=== PATIENT | female | born 1955 | race Caucasian/White ===

== ENCOUNTER → 2020-05-04 | Outpatient (CLI) | payer MEDICARE ==
[2020-05-04 09:03] VITALS: BP 134/83; PULSE 89; RESP 16; TEMP 98.3
--- NOTE | 2020-05-04 20:53 | P.PAINCN ---
History of Present Illness - Reason for Consult Consult date: 05/04/20 - History of Present Illness This is an initial consultation visit for this 65 years old female with a chronic history of neck pain and low back pain, she was treated previously , [facility], and she had been diagnosed with cervical degenerative disc disease cervical facet arthropathy and also she had lumbar degenerative disc disease and lumbar spondylosis with lumbar facet arthropathy, patient had the RFA of the medial branch lumbar area done at the [facility], and the last procedure was done in September 2019 and she had good pain relief, currently her main problem is low back pain, with radiation to the buttock area bilaterally, she denies any motor or sensory deficit she denies any fever or night sweats and there is no change in the bowel movement or urination Past Medical History Past Medical History: Hyperlipidemia, Hypertension, Osteoarthritis (OA), Thyroid Disorder Additional Past Medical History / Comment(s): 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", hx of raynaud's, states possible connective tissue disorder, osteopenia, chronic back pain History of Any Multi-Drug Resistant Organisms: None Reported Past Surgical History: Cholecystectomy Additional Past Surgical History / Comment(s): epidurals for pain, ablations for pain Past Anesthesia/Blood Transfusion Reactions: No Reported Reaction Past Psychological History: No Psychological Hx Reported Smoking Status: Former smoker Past Alcohol Use History: None Reported Past Drug Use History: None Reported Medications and Allergies Home Medications Medication Instructions Recorded Confirmed Type Aspirin [Adult Low Dose Aspirin EC] 81 mg PO DAILY 05/02/20 05/02/20 History Atorvastatin [Lipitor] 20 mg PO DAILY 05/02/20 05/02/20 History Calcium 600-Vitamin D3 1 tab PO BID 05/02/20 History Cranberry 1 tab PO DAILY 05/02/20 History Furosemide [Lasix] 40 mg PO DAILY 05/02/20 05/02/20 History L.acidoph,Paracasei, B.lactis 1 each PO DAILY 05/02/20 05/02/20 History [Probiotic] Levothyroxine Sodium [Synthroid] 50 mcg PO DAILY 05/02/20 05/02/20 History Nitroglycerin Sl Tabs [Nitrostat] 0.4 mg SUBLINGUAL Q5M PRN 05/02/20 05/02/20 History Potassium Chloride 10 meq PO DAILY 05/02/20 05/02/20 History Vitamin B Complex 1 each PO DAILY 05/02/20 05/02/20 History Vitamin D3 10,000 units PO DAILY 05/02/20 History amLODIPine [Norvasc] 5 mg PO QAM 05/02/20 05/02/20 History Allergies Allergy/AdvReac Type Severity Reaction Status Date / Time diltiazem [From Cardizem] Allergy Rash/Hives Verified 05/02/20 15:05 Iodinated Contrast Media Allergy Itching Verified 05/02/20 15:05 levofloxacin [From Levaquin] Allergy Unknown Verified 05/02/20 15:05 meloxicam [From Mobic] Allergy Swelling Verified 05/02/20 15:05 pregabalin [From Lyrica] Allergy Swelling Verified 05/02/20 15:05 sulfamethoxazole Allergy Rash/Hives Verified 05/02/20 15:05 [From Bactrim] trimethoprim [From Bactrim] Allergy Rash/Hives Verified 05/02/20 15:05 cefazolin [From Ancef] AdvReac "made me Verified 05/02/20 15:02 lightheaded" ciprofloxacin [From Cipro] AdvReac "chest Verified 05/02/20 15:03 pain" Physical Exam Vitals: Vital Signs Temp Pulse Resp BP Pulse Ox 05/04/20 08:54 98.3 F 89 16 134/83 96 Physical Examinations : -Constitutiona : Cooperative , not in acute distress . -HEENT : nech : supple , no Lymphadenopathy , normal thyroid size . : eyes : no ptosis , no icterus, no photophobia . - neurologic : Cranial nerve II to XII intact , no focal neurological deffecit . -psychatric : alert , oriented X 3 , appropriate affect , intact judgment and insight . -Lymphatic : no Lymphadenopathy . - musculoskeltal : Cervical Spine motor stregnth in the deltoid and biceps, normal right side , normal Left side motor stregnth biceps and the wrist extensors normal right side ,normal left side . motor stregnth in the triceps muscle . normal Right side , normal Left side deep tendon reflexes normal at the biceps , normal at Brachioradialis , normal at triceps. cervical facet loading test: Positive Bilaterally Spurling test= positive Right , positive left. Neck distraction test= positive Right , positive left. Og sign= positive right, positive left . Limited neck movement Lumber spine moter stegnth lower extremities ,thigh and legs 5/5 Right side , 5/5 Left side deep tendon reflexes : normal Knee Jerk , normal ankle Jerk lumber facet Loading Test =positive Right , posiutive Left Range of motion of the lumbar spine Flexion 30 degrees, extension 10 degrees strait leg raising test = positive at 30 degree Fabere test= positive Right , and positive LT . Sever tenderness over the Sacroiliac joint on the Right , and Left sides Gaenslen test= positive right ,and positive left . Seated flexion test= positive right ,and positive Left . Results Comments: MRI of the cervical spine C3 4 C4 5 C5 6 C6 7 cervical degenerative disc disease and cervical spondylosis with cervical facet arthropathy. MRI of the lumbar spine multilevel lumbar degenerative disc disease and lumbar spondylosis with facet arthropathy Assessment and Plan Plan: Assessment and plan=1-lumbar degenerative disc disease 2-lumbar spondylosis with lumbar facet arthropathy without myelopathy. 3-cervical degenerative disc disease. 4-cervical spondylosis with cervical facet arthropathy. The patient had the diagnostic medial branch block lumbar area and also she had RFA of the medial branch lumbar area done at [facility] and she had excellent pain relief, she would be good candidate to repeat RFA of the medial branch lumbar area at L3, L4, L5 Bilaterally, procedure risk and benefits and alternatives discussed with the patient she agreed with proceeding Time with Patient: Greater than 30 PQRS Measure Charge Sheet Measure #130: Documentation of Current Meds in Medical Chart: Patient's medications documented in chart Measure #226: Tobacco Use: Screen & Cessation Intervention: Pt not a tobacco user Measure #111: Pneumonia Vaccination: Pneumococcal vaccine administered or previously received Measure #47: Advance Care Plan: Advance care planning discussed & documented, pt chose/unable to give Measure #412: Opioid Treatment Agreement: No documentation of signed opioid treatment agreement Measure #408: Opioid Therapy Follow-up Evaluation: Patient had NO f/u eval minimum every 3 months during opioid therapy Measure #317: Preventitive Care & Scrn High Bld Press & F/U: Normal blood pressure, f/u not required Measure #128: Body Mass Index (BMI) Screening & Follow-up: BMI documented ABOVE normal parameters - f/u documented Measure #131: Pain Assessment & Follow-up: Pain positive & plan documented, Follow-up scheduled Measure #431: Unhealthy Alcohol Use Preventative Care & Scrn: Patient not identified as an unhealthy alcohol user PQRS Narrative: Blood Pressure 134/83 Pain Intensity [Back] 6 Scale Used Numeric (1 - 10) Hx Alcohol Use (MH) No Home Medications: Ambulatory Orders Aspirin [Adult Low Dose Aspirin EC] 81 mg PO DAILY 05/02/20 Atorvastatin [Lipitor] 20 mg PO DAILY 05/02/20 Calcium 600-Vitamin D3 1 tab PO BID 05/02/20 Cranberry 1 tab PO DAILY 05/02/20 Furosemide [Lasix] 40 mg PO DAILY 05/02/20 L.acidoph,Paracasei, B.lactis [Probiotic] 1 each PO DAILY 05/02/20 Levothyroxine Sodium [Synthroid] 50 mcg PO DAILY 05/02/20 Nitroglycerin Sl Tabs [Nitrostat] 0.4 mg SUBLINGUAL Q5M PRN 05/02/20 Potassium Chloride 10 meq PO DAILY 05/02/20 Vitamin B Complex 1 each PO DAILY 05/02/20 Vitamin D3 10,000 units PO DAILY 05/02/20 amLODIPine [Norvasc] 5 mg PO QAM 05/02/20
== END | disposition home or self-care (01) ==
LOC: PNWHC3 08:27
PROVIDERS: ATTEND Specialist
DX: M50.30 Other cervical disc degeneration, unspecified cervical region (principal); M51.36 Other intervertebral disc degeneration, lumbar region; M47.812 Spondylosis without myelopathy or radiculopathy, cervical region; M47.816 Spondylosis without myelopathy or radiculopathy, lumbar region; I10 Essential (primary) hypertension; E78.5 Hyperlipidemia, unspecified; E07.9 Disorder of thyroid, unspecified; Z90.49 Acquired absence of other specified parts of digestive tract; Z79.82 Long term (current) use of aspirin; Z79.899 Other long term (current) drug therapy; Z79.890 Hormone replacement therapy; Z88.1 Allergy status to other antibiotic agents; Z88.8 Allergy status to other drugs, medicaments and biological substances; Z91.09 Other allergy status, other than to drugs and biological substances
CPT/HCPCS: 99211

== ENCOUNTER 2020-05-27 07:48 | Day surgery (SDC) | payer MEDICARE ==
[2020-05-26 10:40] VITALS: BMI 27.9
[2020-05-27 08:14] VITALS: RESP 18; TEMP 97.4
[2020-05-27] MEDS: LACTATED RINGERS 1,000 ML IV SCH ×2 (08:25→09:07)
[2020-05-27] MEDS ORDERED: fentaNYL (PF) 50 MCG/ML 2 ML AMP ONE (09:09)
[2020-05-27] MEDS ORDERED: ROPIVACAINE 5MG/ML 20ML VIAL ONE (09:09)
[2020-05-27] MEDS ORDERED: LIDOCAINE 1% INJ 10MG/ML (20 ML MDV) ONE (09:09)
[2020-05-27] MEDS ORDERED: TRIAMCINOLONE ACETONIDE 40 MG/ML 1 ML VIAL ONE (09:09)
[2020-05-27] MEDS ORDERED: MIDAZOLAM 2 MG/2 ML VIAL ONE (09:09)
--- NOTE | 2020-05-27 09:51 | P.PCN ---
Date of Procedure: 05/27/20 Surgeon: Harry Torres Pathology: none sent Condition: stable Disposition: PACU Description of Procedure: PREOPERATIVE DIAGNOSIS: Lumbar spondylosis without myelopathy POSTOPERATIVE DIAGNOSIS: Lumbar spondylosis without myelopathy PROCEDURES : Bilateral Radiofrequency thermocoagulation L3-L4, L4-L5, and L5-S1 medial branch, with fluoroscopic guidance ANESTHESIA: Lidocaine 1% for local anesthesia and IV moderate conscious sedation by the anesthesia department Physician:Harry Torres MD EBL: Minimal PROCEDURE INDICATION: The patient with low back pain secondary to lumbar facet arthropathy who had more than 50% relief of her pain with previous diagnostic lumbar medial branch block with bupivacaine. PROCEDURE DESCRIPTION / TECHNIQUE: The patient was seen and identified in the preoperative area. Risks, benefits, complications, including but not limited to risk of infection ,bleeding , allergic reactions to the medications and no complete pain relief , and alternatives were discussed with the patient, the patient agreed to proceed with the procedure and signed the consent. IV was started. Vital signs remained stable throughout the procedure. Patient was taken to the OR and time out was completed. The patient was placed in the prone position on the procedure table. The lumber area was prepped and draped in the usual sterile fashion. . Vital signs were closely monitored during the procedure .IV sedation was used during the procedure to decrease patients anxiety. The target points were identified as follows: For the L5-S1 level which corresponds to the dorsal ramus of L5 the target point was at the superior medial aspect of the sacral ala on the right side of the spine on the AP view of fluoroscopy and for the L3, and L4 medial branches the target points were at the connection between the transverse process and the superior articular process of L4, and L5 vertebra respectively on the right oblique view of fluoroscopy. skin was marked, and localized with 1% lidocaineat these points. Subsequently, an 18 tohyd944-dm radiofrequency needles with a 10-mm curved active tips were advanced guided by fluoroscopy to each of the target points mentioned above in a superior medial direction to get the active tips as parallel as possible to the medial branches tracks. AP, oblique, and lateral views of fluoroscopy were used to verify needle tips position. Each level then underwent motor testing at 2.5 Hz and 0 to 3 volt with local stimulation, but no radicular symptoms down the legs. I then injected 1 mL of lidocaine 1% in each needle before starting radiofrequency thermocoagulation at 80 degrees celsius for 90 seconds. After that I injected 1 ml of PF Marcaine 0.5%(5 mls) with 40 mg of Kenalog, 1 mL of this mixture was given in each needle before taking the needles out intact. The left side was done in the same manner. At the end of the procedure, the skin was cleansed and bandages were applied. A copy of needle placement fluoroscopy was saved on the C-arm machine. COMPLICATIONS: No acute complications. DISPOSITION / PLANS: The patient was placed in a supine position and transferred to the recovery area in a stable condition for observation and was discharged from the recovery room after meeting discharge criteria. Home discharge instructions given to the patient by the staff. The patient was reexamined prior to discharge. The patient will schedule a follow up in the clinic in 2-4 weeks.
--- NOTE | 2020-05-27 10:03 | FL ---
EXAMINATION TYPE: FL guided pain mgmt statistic DATE OF EXAM: 05/27/2020 HISTORY: Fluoroscopy time 40 seconds of fluoroscopy provided. IMPRESSION: 1. Fluoroscopy time.
[2020-05-27 10:15] VITALS: BP 115/72; PULSE 66
[2020-05-27] MEDS ORDERED: IV FLUID CONTINUATION 500 ML IV ONE (10:19)
== END 2020-05-27 10:29 | disposition home or self-care (01) ==
LOC: ORPAIN 07:48
PROVIDERS: ATTEND Anesthesiology
DX: M47.816 Spondylosis without myelopathy or radiculopathy, lumbar region (principal); I10 Essential (primary) hypertension; E78.5 Hyperlipidemia, unspecified; M19.90 Unspecified osteoarthritis, unspecified site; E07.9 Disorder of thyroid, unspecified; Z79.82 Long term (current) use of aspirin; Z79.890 Hormone replacement therapy; Z79.1 Long term (current) use of non-steroidal anti-inflammatories (NSAID); Z90.710 Acquired absence of both cervix and uterus
CPT/HCPCS: 64635; 64636; J2250; J3301; J2001; J3010; J2795

== ENCOUNTER → 2020-07-06 | Outpatient (CLI) | payer MEDICARE ==
[2020-07-06 12:20] VITALS: BP 136/84; PULSE 76; RESP 16; TEMP 98.4
--- NOTE | 2020-07-06 12:43 | P.PN ---
Subjective Progress Note Date: 07/06/20 This is a follow-up visit for this 65 years old female with a chronic history of severe low back pain and neck pain, she is diagnosed with cervical spondylosis and lumbar spondylosis, and lumbar spinal stenosis and lumbar degenerative disc disease, recently we did RFA of the medial branch lumbar area which helped her axial back pain, currently she is having back pain with radiation to the lower extremity bilaterally more prominent on the left side, associated with some numbness and tingling sensation, he denies any motor or sensory deficit she denies any change in the bowel movement or urination, no fever or night sweats Objective - Vital Signs Vital signs: Vital Signs Temp 98.4 F 07/06/20 12:18 Pulse 76 07/06/20 12:18 Resp 16 07/06/20 12:18 BP 136/84 07/06/20 12:18 Pulse Ox 95 07/06/20 12:18 - Exam Physical Examinations : -Constitutiona : Cooperative , not in acute distress . -HEENT : nech : supple , no Lymphadenopathy , normal thyroid size . : eyes : no ptosis , no icterus, no photophobia . - neurologic : Cranial nerve II to XII intact , no focal neurological deffecit . -psychatric : alert , oriented X 3 , appropriate affect , intact judgment and insight . -Lymphatic : no Lymphadenopathy . - musculoskeltal : Lumber spine moter stegnth lower extremities ,thigh and legs 5/5 Right side , 5/5 Left side deep tendon reflexes : normal Knee Jerk , normal ankle Jerk lumber facet Loading Test = positive Range of motion of the lumbar spine Flexion 30 degrees, extension 10 degrees strait leg raising test = positive at 45 degree Fabere test= positive Right , and positive LT . tenderness over the Sacroiliac joint on the Right , and Left sides MRI of the lumbar spine= L4 5 and L5-S1 lumbar spinal stenosis, multilevel degenerative disc disease multilevel lumbar facet arthropathy Assessment and Plan Plan: Assessment and plan=1-lumbar radiculopathy. 2-lumbar spinal stenosis. 3-lumbar spondylosis with lumbar facet arthropathy without myelopathy. 4-lumbar degenerative disc disease. 5-cervical spondylosis. Patient had good results after the RFA of the medial branch lumbar area, currently she is having radicular symptoms Patient could benefit from lumbar epidural steroid injection under fluoroscopy guidance at L4 5 or L5-S1 - PQRS measures = - Patient's medications are documented in the chart. -Tobacco use is negative and counseling.Given. -Patient's has not received pneumococcal vaccine. -Advanced care planning discussed, patient not eligible. -Opiate contract not signed. -Pain positive and follow-up visit/procedure is scheduled. -Patient's blood pressure measured [ 136/84 ] , and documented in the record ,and patient will follow up with the primary care. -Patient's weight was measured and body mass index [ ] above the normal limits and counseling was done. and patient instructed to follow-up with the primary care physician. -Patient was not identified as an unhealthy alcohol user Time with Patient: Less than 30
== END ==
LOC: PNWHC3 12:06
PROVIDERS: ATTEND Specialist
DX: M47.26 Other spondylosis with radiculopathy, lumbar region (principal); M51.16 Intervertebral disc disorders with radiculopathy, lumbar region; M48.061 Spinal stenosis, lumbar region without neurogenic claudication; M47.812 Spondylosis without myelopathy or radiculopathy, cervical region
CPT/HCPCS: 99211